=== PATIENT | male | born 1950 | race Caucasian/White ===

== ENCOUNTER 2022-11-10 10:36 | Outpatient (CLI) | payer OTHER ==
[~2022-11-10 10:36] MED LIST: barium sulfate 450ml oral suspension ONE
== END 2022-11-10 23:59 | disposition home or self-care (01) ==
LOC: RAD 10:36
PROVIDERS: ATTEND Student in an Organized Health Care Education/Training Program
DX: R13.10 Dysphagia, unspecified (principal)
CPT/HCPCS: 74220

== ENCOUNTER 2025-10-29 08:06 | Outpatient (CLI) | payer MEDICARE ==
--- NOTE | 2025-10-29 10:42 | RADIOLOGY REPORT ---
EXAM: MR MRI HEAD HISTORY: DEMENTIA COMPARISON: None TECHNIQUE: MRI was performed utilizing multiple appropriate imaging planes and pulse sequences. FINDINGS: SUPRATENTORIAL REGION: No evidence for acute ischemia or intracranial hemorrhage. Scattered ill-defined FLAIR hyperintensities are noted within the bilateral white matter. POSTERIOR FOSSA: Unremarkable. BRAINSTEM: Unremarkable. SELLAR/SUPRASELLAR REGION: Unremarkable. VENTRICLES, CISTERNS, SULCI: Age-appropriate. ORBITS: Unremarkable. PARANASAL SINUSES: Diffuse paranasal sinus mucosal thickening noted. No air- fluid level MASTOID AIR CELLS: Mild opacification of the bilateral mastoid air cells noted. VASCULATURE: Unremarkable. BONES/ SOFT TISSUES: Unremarkable. OTHER: None. IMPRESSION: 1. No acute intracranial process identified. 2. Mild global cortical atrophy and chronic microvascular ischemic changes. 3. Moderate chronic paranasal sinus disease. 4. Small bilateral mastoid effusions.
== END 2025-10-29 23:59 | disposition home or self-care (01) ==
LOC: MRI02 08:06
PROVIDERS: ATTEND Family Medicine
DX: I67.82 Cerebral ischemia (principal); G31.9 Degenerative disease of nervous system, unspecified; F02.80 Dementia in other diseases classified elsewhere, unspecified severity, without behavioral disturbance, psychotic disturbance, mood disturbance, and anxiety; J32.4 Chronic pansinusitis
CPT/HCPCS: 70551